=== PATIENT | female | born 1995 | race Caucasian/White ===

== ENCOUNTER 2019-01-26 13:36 | Inpatient (IN) | payer OTHER ==
[~2019-01-26] VITALS: Ht 165.1 cm; Wt 102.2 kg
[2019-01-26] MEDS ORDERED: MAPA500T2 PO (14:00)
[2019-01-26] MEDS ORDERED: PREN1CHW6 PO (14:00)
[2019-01-26 14:02] VITALS: BP 136/91
[2019-01-26 14:36] VITALS: BP 144/86
[2019-01-26] MEDS ORDERED: DOCUSATE SODIUM 100 MG CAP PO PRN (14:45)
[2019-01-26] MEDS ORDERED: ACETAMINOPHEN TAB 650MG DOSE (2X325MG) PO PRN (14:45)
[2019-01-26] MEDS ORDERED: ACETAMINOPHEN 500 MG TAB PO PRN (14:45)
[2019-01-26] MEDS ORDERED: IBUPROFEN 600 MG TAB PO PRN (14:45)
[2019-01-26 15:30] LABS: HEMATOCRIT 29.9 % (36.0-47.0); HEMOGLOBIN 9.9 g/dl (12.0-15.5); MEAN CORPUSCULAR HEMOGLOBIN 28.6 pg (27.0-33.0); MEAN CORPUSCULAR HGB CONC 33.1 g/dl (32.0-36.5); MEAN CORPUSCULAR VOLUME 86.4 fl (80.0-96.0); PLATELET COUNT, AUTOMATED 293 10^3/uL (150-450); RED BLOOD COUNT 3.46 10^6/uL (4.00-5.40); WHITE BLOOD COUNT 8.8 10^3/uL (4.0-10.0)
[2019-01-26] MEDS: IBUPROFEN 800 MG TAB PO PRN (15:39)
[2019-01-26 16:14] VITALS: BP 125/81
[2019-01-26 17:37] LABS: HEPATITIS B SURFACE ANTIGEN NEGATIVE (NEGATIVE)
[2019-01-26 18:13] VITALS: BP 128/79
[2019-01-26 18:57] LABS: BARBITURATES URINE REFLEX NEGATIVE (NEGATIVE); BENZODIAZEPINES URINE REFLEX NEGATIVE (NEGATIVE); COCAINE METABOLITE URINE REFLE NEGATIVE (NEGATIVE); METHADONE URINE REFLEX NEGATIVE (NEGATIVE); OPIATES URINE REFLEX NEGATIVE (NEGATIVE); PHENCYCLIDINE URINE REFLEX NEGATIVE (NEGATIVE)
[2019-01-26 20:36] LABS: AMPHETAMINES URINE REFLEX PENDING CONFIRMATION (NEGATIVE); CANNABINOIDS URINE REFLEX PENDING CONFIRMATION (NEGATIVE)
[2019-01-27 06:00] VITALS: BP 107/67
--- NOTE | 2019-01-27 06:18 | HPE ---
DATE OF ADMISSION: 01/26/2019 HISTORY OF PRESENT ILLNESS: 23-year-old (G) 2, para (P) 1 female at 39-2/7 weeks gestation by last menstrual period (LMP) consistent with an 8 week ultrasound, estimated date of confinement (EDC) 01/31/2019, presents by ambulance to [facility] after delivering the baby at home at 7:30 a.m. on the day on admission. She did not want to wake her mother or ready to come to the hospital. She was advised later in the day to come to the hospital once it was noted that she had delivered at home. CARE: In [place]. She has had no care since November 25, 2018 at approximately 29 weeks gestation. OBSTETRICAL HISTORY: 2016, 38 week vaginal delivery of a 7 pound, 3 ounce male infant. No complications. PAST MEDICAL HISTORY: None. ALLERGIES: No known drug allergies. SOCIAL HISTORY: The patient lives in [place], [place] with her mother and child. She denies cigarettes, alcohol or drug use. She quit cigarettes with the onset of the supposedly. FAMILY HISTORY: Noncontributory. PHYSICAL EXAMINATION: PHYSICAL EXAMINATION: VITAL SIGNS: Blood pressure 136/91, pulse 90, temperature 96.8. GENERAL: This is a pale appearing female in no distress. HEAD AND NECK EXAM: Normal. LUNGS: Clear to auscultation. HEART: Regular rate and rhythm. ABDOMEN: Nontender, nondistended. FUNDUS: 2 cm below umbilicus. STERILE VAGINAL EXAM: No vaginal lacerations present. Minimal bleeding. No placenta present. EXTREMITIES: Nontender. ASSESSMENT: 23-year old (G)2, Para (P)1 status post vaginal delivery at home at 39 plus weeks presents for post care. PLAN: The patient will be admitted for routine blood work and care. She is a negative blood type and will require RhoGAM. She appears quite pale, assess for anemia.
[2019-01-27] MEDS ORDERED: ADACEL/BOOSTRIX VACCINE (DIPHTH/PERTUSS/ACELL/TETANUS)0.5ML SYR (90715) IM ONE ×2 (09:00)
[2019-01-27 17:54] VITALS: BP 120/78
[2019-01-27] MEDS: IBUPROFEN 800 MG TAB PO PRN (18:05)
[2019-01-28 06:48] VITALS: BP 109/62
[2019-01-28] MEDS ORDERED: ADACEL/BOOSTRIX VACCINE (DIPHTH/PERTUSS/ACELL/TETANUS)0.5ML SYR (90715) IM ONE (09:00)
[2019-01-28] MEDS ORDERED: ACET-683 PO (09:06)
[2019-01-28] MEDS ORDERED: IBUP80TA PO (09:06)
[2019-01-30 14:07] LABS: Amphetamine Positive (.); Amphetamines Positive (.); Cannabinoid Positive (.); GC Amphetamine >4000 ng/mL (Cutoff=500); GC Carboxy THC 30 ng/mL (Cutoff=10); GC Methamphetam >4000 ng/mL (Cutoff=500); Methamphetamine Positive (.)
== END 2019-01-28 11:00 | disposition home or self-care (01) | DRG 561 ==
LOC: M LDI 13:36 → M OBS 15:54
PROVIDERS: ADMIT Specialist; ATTEND Specialist
DX: Z39.0 Encounter for care and examination of mother immediately after delivery (principal); D64.9 Anemia, unspecified; Z3A.39 39 weeks gestation of pregnancy; O99.03 Anemia complicating the puerperium